=== PATIENT | female | born 1975 | race American Indian/Alaskan Native ===

== ENCOUNTER 2016-12-21 12:44 | Emergency (ER) | payer OTHER ==
[2016-12-21 13:03] VITALS: RESP 16; TEMP 97.8; O2SAT 100
[2016-12-21 15:08] LABS: BASO % 0.4 % (0.0-2.0); EOS # 0.7 K/uL (0.0-0.7); EOS % 6.8 % (0.0-4.0); HEMATOCRIT 35.8 % (34.0-47.0); LYMPH # 2.2 K/uL (1.0-4.3); MEAN CELL VOLUME 84.4 fl (81.0-99.0); MEAN CORPUSCULAR HEMOGLOBIN 27.7 pg (27.0-31.0); MEAN CORPUSCULAR HGB CONC 32.8 g/dL (33.0-37.0); MEAN PLATELET VOLUME 10.7 fl (7.2-11.7); MONO # 0.6 K/uL (0.0-0.8); MONO % 5.7 % (0.0-10.0); NEUT % 66.1 % (50.0-75.0); NRBC % 0.1 % (0.0-0.0); RED CELL DISTRIBUTION WIDTH 14.9 % (11.5-14.5); WHITE BLOOD COUNT 10.6 K/uL (4.8-10.8)
[2016-12-21 15:17] LABS: BLOOD UREA NITROGEN 7 mg/dl (7-17); CALCIUM 9.3 mg/dL (8.4-10.2); CARBON DIOXIDE 21 mmol/L (22-30); CHLORIDE 106 mmol/L (98-107); GFR AFRICAN-AMERICAN > 60; GLUCOSE,RANDOM 68 mg/dL (65-105); SODIUM 134 mmol/l (132-148); URIC ACID 4.1 mg/Dl (2.2-7.5)
[2016-12-21 15:18] LABS: ALKALINE PHOSPHATASE 64 U/L (38-126); ALT/SGPT 23 U/L (9-52); AST/SGOT 40 U/L (14-36); BILIRUBIN,TOTAL 0.7 mg/dl (0.2-1.3); TOTAL PROTEIN 7.1 G/DL (6.3-8.2)
[2016-12-21 15:29] LABS: URINE BILIRUBIN NEGATIVE (NEGATIVE); URINE BLOOD NEGATIVE (NEGATIVE); URINE COLOR STRAW (YELLOW); URINE GLUCOSE (UA) NEG (Normal); URINE KETONE TRACE mg/dL (NEGATIVE); URINE LEUKOCYTE ESTERASE NEG Leu/uL (Negative); URINE PROTEIN NEGATIVE (NEGATIVE); URINE UROBILINOGEN 0.2-1.0 mg/dL (0.2-1.0)
[2016-12-21 15:59] LABS: RBC URINE 1 /hpf (0-3); WBC URINE 1 /hpf (0-5)
--- NOTE | 2016-12-21 20:55 | OBHP ---
Datetime: 12/21/2016 16:19 IP Adm Impression: , intrauterine IP Chief Complaint Other: elevated BP in chronic hypertensive IP Admit Plan: Observation/Evaluation Admit Comment, IP Provider: CC: elevated BP in chronic hypertensive 41 y/o presenting at 28+ wk IUP ( [facility]ODA 03/14/17 by lmp per patient) sent from Dr Hull's o ffice for elevated BPs of 150s/90s. Patient has a hx of chronic HTN on labetalol 200 mg Q6. Patient i s compliant with meds. Denies HAMPTON, blurry vision, CP, SOB, dizziness, abd pain, limb swelling, no ctx, VB, LOF. States + F M. OBGYN Hx: no records to verify, states routine PNC, admits having 24 hr urine collection this preg robin. PMH: HTN PSH: denies Meds: Labetalol 200mg Q6 Allergies: NKDA O: cat 1 tracing, BPs reassuring in ED, 130s/70s A/P IUP 28+ weeks with chronic HTN - Preecclampsia workup: AST mildly elevated 40, Plts WNL 160, rest unremarkable - all labwork faxed over to Dr Hull's office - commence 24 hr urine collection tomorrow AM - follow up with Dr. Hull in 2 days, reassess BP - ER precautions discussed - all patient questions answered - d/w Dr Ray Alicea MD OB Hospitalist note: This pt was seen and examined by me. Agree with above note. ANNY spoke with Dr Hull and willsee patient next week Pelvic Type - PN: Not Done Extremities - PN: Normal Abdomen - PN: Normal Back - PN: Normal Breast - PN: Not Done Lungs - PN: Normal Heart - PN: Normal Thyroid - PN: Not Done Neurologic - PN: Normal HEENT - PN: Not Done General - PN: Normal FHR - Baseline A Provider: 150 Comments, ACOG Physical Exam: ROS: General: no weakness; no fatigue HEENT: no HAMPTON; no visual dist CV: no palpitations; no no CP GI: no N/V no diarhea : no F/U/D MS: No joint pain Uses Gestation - Est Wks by US: 28.0 Vital Signs Provider: Reviewed; Within Normal Limits NICHD Variability Prov Fetus A: Moderate 6-25bpm NICHD Accel Fetus A IP Provider: 15X15 FHR Category Provider Fetus A: Category I Genitourinary Exam: Normal DTRs - PN: Not Done
--- NOTE | 2016-12-21 20:58 | OBDCSUM ---
Datetime: 12/21/2016 16:16 Discharged to, Provider: Home Follow up at, Provider: Dr Hull Disch Instr Activity: Normal activity Disch Instr Diet: Regular Discharge Time: 12/21/2016 16:20 Follow up in weeks, Provider: next Tuesday Disch Referrals: None Disch Activity Restrictions: No sexual activity Discharge Comment, Provider: IUP 28+ weeks with chronic HTN - Preecclampsia workup: AST mildly elevated 40, Plts WNL 160, rest unremarkable - all labwork faxed over to Dr Hull's office - commence 24 hr urine collection tomorrow AM - follow up with Dr. Hull in 2 days, reassess BP - ER precautions discussed - all patient questions answered - d/w Dr Ray Alicea MD OB Hospitalist note: This pt was seen and examined by me. Agree with above note. MAHNDO Discharge Diagnosis Prov Other: Chronic HTN
[2016-12-21 20:59] VITALS: BP 133/74; PULSE 101
== END 2016-12-21 16:20 | disposition home or self-care (01) ==
LOC: H.EROB2 12:44
DX: I10 Essential (primary) hypertension (principal); Z3A.28 28 weeks gestation of pregnancy

== ENCOUNTER 2017-02-02 22:39 | Emergency (ER) | payer OTHER ==
[2017-02-02 22:54] VITALS: BMI 40.8
[2017-02-03 00:23] LABS: BASO % 0.3 % (0.0-2.0); EOS # 0.2 K/uL (0.0-0.7); EOS % 3.3 % (0.0-4.0); HEMATOCRIT 33.4 % (34.0-47.0); LYMPH # 2.1 K/uL (1.0-4.3); LYMPH % 29.3 % (20.0-40.0); MEAN CELL VOLUME 83.7 fl (81.0-99.0); MEAN CORPUSCULAR HEMOGLOBIN 27.2 pg (27.0-31.0); MEAN CORPUSCULAR HGB CONC 32.5 g/dL (33.0-37.0); MEAN PLATELET VOLUME 9.5 fl (7.2-11.7); MONO # 0.5 K/uL (0.0-0.8); MONO % 7.4 % (0.0-10.0); NEUT # 4.3 K/uL (1.8-7.0); NEUT % 59.7 % (50.0-75.0); NRBC % 0.1 % (0.0-0.0); RED CELL DISTRIBUTION WIDTH 14.6 % (11.5-14.5); WHITE BLOOD COUNT 7.1 K/uL (4.8-10.8)
[2017-02-03 00:24] LABS: RBC URINE 3 /hpf (0-3); URINE BILIRUBIN NEGATIVE (NEGATIVE); URINE BLOOD SMALL (NEGATIVE); URINE COLOR YELLOW (YELLOW); URINE GLUCOSE (UA) NEG (Normal); URINE KETONE TRACE mg/dL (NEGATIVE); URINE LEUKOCYTE ESTERASE NEG Leu/uL (Negative); URINE PROTEIN NEGATIVE (NEGATIVE); URINE UROBILINOGEN 0.2-1.0 mg/dL (0.2-1.0); WBC URINE 2 /hpf (0-5)
[2017-02-03 00:34] LABS: ALKALINE PHOSPHATASE 72 U/L (38-126); ALT/SGPT 24 U/L (9-52); AST/SGOT 17 U/L (14-36); BILIRUBIN,TOTAL 0.1 mg/dl (0.2-1.3); BLOOD UREA NITROGEN 11 mg/dl (7-17); CALCIUM 8.8 mg/dL (8.4-10.2); CARBON DIOXIDE 21 mmol/L (22-30); CHLORIDE 109 mmol/L (98-107); GFR AFRICAN-AMERICAN > 60; GLUCOSE,RANDOM 96 mg/dL (65-105); POTASSIUM 3.7 MMOL/L (3.6-5.0); SODIUM 138 mmol/l (132-148); TOTAL PROTEIN 6.8 G/DL (6.3-8.2); URIC ACID 4.8 mg/Dl (2.2-7.5)
[2017-02-03 05:34] VITALS: BP 133/83; PULSE 87; RESP 16; TEMP 98.7
--- NOTE | 2017-02-03 08:00 | OBHP ---
Datetime: 02/02/2017 23:37 IP Adm Impression: , intrauterine IP Chief Complaint Other: elevated BP IP Admit Plan: Observation/Evaluation Admit Comment, IP Provider: CC: "elevated bp of 167/97 at home" HPI: 41 YO @ 34.2wks IUP with PMH of CHTN presents to [facility] for elevated BP at home. This even ing pt had a headache and occasional dizziness. Pt took her BP and was found to be 167/97 at which po int she called Dr. Hull and was told to take her her labatalol and then come to [facility]. Pt took her la batalol 300mg around 8:30 and presented to the ED after. Denies LOF/VB/contractions and + moveme nt. Of note, pt was dx with UTI two days ago and is taking cephalexin 500mg for 10 days. Doc: Dr. Hull Ob hx: nvd x 2 full term GYnhx: no STIs, normal pap PMH: HTN Surg: Appendicitis Allergies: NKDA Meds: labatalol 300 TID, ASA 81, PNV and cephalexin 500mg Q6H (D2/10) SH: denies alcohol, smoking and etoh FH: HTN PE: VS Stable Gen: NAD cardio: S1S2, no M/G/R Resp: vesicular breathing b/l Abdomen: gravid, NT, BS+ Neuro: AAOx 3 Ext: no edema appreciated FM: 150, moderate variability, catagory I Assessment/Plan: 41 YO @ 34.2wks IUP with PMH of CHTN will be evaluated for preeclampsia. Last BP 129/75, pt s table. -CBC, CMP, uric acid, LFTs, protein, fibrinogen, PT/PTT, urinalysis. -monitor BPs. Pt was reassessed and reevaluated. Pt in NAD, resting comfortably. Headache has imporved. Blood wo rk appreciated. BPs stable at 120-130s/70-80s. Spoke to Dr. Hull. Pt given 24hr urine, d/c home and will follow up with Dr. Hull on Tuesday @ 1PM. Sasha Ospina, PGY I Patient's blood pressures reviewed 126/75-137/84 patient was asymptomatic upon discharge I agree w ith the resident's note and labs were within normal limits Pelvic Type - PN: Adequate Extremities - PN: Normal Abdomen - PN: Normal Back - PN: Not Done Breast - PN: Not Done Lungs - PN: Normal Heart - PN: Normal Thyroid - PN: Not Done Neurologic - PN: Normal HEENT - PN: Normal General - PN: Normal FHR - Baseline A Provider: 150 EGA AdmitDate IP: 34.2 Vital Signs Provider: Reviewed IP Chief Complaint: Other NICHD Variability Prov Fetus A: Moderate 6-25bpm NICHD Accel Fetus A IP Provider: 15X15 FHR Category Provider Fetus A: Category I Genitourinary Exam: Not Done DTRs - PN: Normal
== END 2017-02-03 01:15 | disposition home or self-care (01) ==
LOC: H.EROB2 22:39
DX: O13.3 Gestational [pregnancy-induced] hypertension without significant proteinuria, third trimester (principal); Z3A.34 34 weeks gestation of pregnancy

== ENCOUNTER 2017-02-16 12:43 | Inpatient (IN) | payer OTHER ==
[2017-02-16 13:27] VITALS: BMI 41.2
[2017-02-16 14:53] LABS: BASO % 0.5 % (0.0-2.0); EOS # 0.3 K/uL (0.0-0.7); EOS % 3.2 % (0.0-4.0); HEMATOCRIT 35.4 % (34.0-47.0); LYMPH # 2.1 K/uL (1.0-4.3); LYMPH % 20.6 % (20.0-40.0); MEAN CORPUSCULAR HGB CONC 33.7 g/dL (33.0-37.0); MEAN PLATELET VOLUME 10.6 fl (7.2-11.7); MONO # 0.6 K/uL (0.0-0.8); MONO % 5.7 % (0.0-10.0); NRBC % 0.1 % (0.0-0.0); RED CELL DISTRIBUTION WIDTH 14.6 % (11.5-14.5)
--- NOTE | 2017-02-16 15:00 | OBHP ---
Datetime: 02/16/2017 14:56 IP Adm Impression: , intrauterine IP Admit Plan: Admit to unit Admit Comment, IP Provider: G3P @ @ 36.2 wks GA with chornic htn seen by MFM office for routine ante testing with elevated BP 140/100. pt denies any headahce, bluryr visin, ruq/epigastri pain. pt had repated bp elevated adn MFM recommending IOL. Pt was then referred. Pt wsa at [facility] for BP elvatui n to rule out preeclamp and was given celestone on last visit fo rfetal lung matrurity. 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: Deie hx of abnorma pap, fibroid, ovairna cyst sti PMY: CHronic HTN PSH: Denies MEDS: Labetao, PNV NKDA SHX: negatiev x 3 FHX: non tontiuogyr A/P G3P@ @ 36.2 wks GA IOL for chronic HNT cannot rule out superimposed preelcampia -admi to L+D -npo, ivf -admssion/precelpamti labs -vs q 15 mn -BP paramater for IV Push >160/100 -cervidl -cont toco and efm -analagies prn Pelvic Type - PN: Adequate Extremities - PN: Normal Abdomen - PN: Normal Back - PN: Normal Breast - PN: Normal Lungs - PN: Normal Heart - PN: Normal Thyroid - PN: Normal Neurologic - PN: Normal HEENT - PN: Normal General - PN: Normal Weight - Estimated: 2900 FHR - Baseline A Provider: 150 Membranes, Provider: Intact Contraction Comments Provider: irregular Gestation - Est Wks by US: 36.2 IP Hx Assessment: The History has been Reviewed and is Current EGA AdmitDate IP: 36.2 Vital Signs Provider: Reviewed IP Chief Complaint: Other NICHD Variability Prov Fetus A: Moderate 6-25bpm FHR Category Provider Fetus A: Category I Dilatation, Provider: 1 Effacement, Provider: 30 Station, Provider: -3 Genitourinary Exam: Normal DTRs - PN: Normal
--- NOTE | 2017-02-16 15:02 | OBADHP ---
Datetime: 02/16/2017 14:56 Admit Comment, IP Provider: G3P @ @ 36.2 wks GA with chornic htn seen by MFM office for routine ante dae testing with elevated BP 140/100. pt denies any headahce, bluryr visin, ruq/epigastri pain. pt had repated bp elevated adn MFM recommending IOL. pt reprots having 24 hour urine with increasin pro tein. Pt was then referred. Pt wsa at [facility] for BP elvatuin to rule out preeclamp and was given gidlardo one on last visit fo rfetal lung matrurity. 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: Deie hx of abnorma pap, fibroid, ovairna cyst sti PMY: CHronic HTN PSH: Denies MEDS: Labetao, PNV NKDA SHX: negatiev x 3 FHX: non tontiuogyr A/P G3P@ @ 36.2 wks GA IOL for chronic HNT cannot rule out superimposed preelcampia -admi to L+D -npo, ivf -admssion/precelpamti labs -vs q 15 mn -BP paramater for IV Push >160/100 -cervidl -cont toco and efm -analagies prn -will cnsdier mgso4 if sever preexclampis Pelvic Type - PN: Adequate Extremities - PN: Normal Abdomen - PN: Normal Back - PN: Normal Breast - PN: Normal Lungs - PN: Normal Heart - PN: Normal Thyroid - PN: Normal Neurologic - PN: Normal HEENT - PN: Normal General - PN: Normal Weight - Estimated: 2900 FHR - Baseline A Provider: 150 Membranes, Provider: Intact Contraction Comments Provider: irregular Gestation - Est Wks by US: 36.2 IP Hx Assessment: The History has been Reviewed and is Current Vital Signs Provider: Reviewed IP Chief Complaint: Other NICHD Variability Prov Fetus A: Moderate 6-25bpm FHR Category Provider Fetus A: Category I Dilatation, Provider: 1 Effacement, Provider: 30 Station, Provider: -3 Genitourinary Exam: Normal DTRs - PN: Normal EGA AdmitDate IP: 36.2 IP Adm Impression: , intrauterine IP Admit Plan: Admit to unit Datetime: 02/02/2017 23:37 IP Chief Complaint Other: elevated BP NICHD Accel Fetus A IP Provider: 15X15 Datetime: 12/21/2016 16:19 Comments, ACOG Physical Exam: ROS: General: no weakness; no fatigue HEENT: no HAMPTON; no visual dist CV: no palpitations; no no CP GI: no N/V no diarhea : no F/U/D MS: No joint pain Uses
[2017-02-16 15:18] LABS: ALKALINE PHOSPHATASE 83 U/L (38-126); ALT/SGPT 28 U/L (9-52); AST/SGOT 24 U/L (14-36); BILIRUBIN,TOTAL 0.2 mg/dl (0.2-1.3); BLOOD UREA NITROGEN 7 mg/dl (7-17); CALCIUM 8.8 mg/dL (8.4-10.2); CARBON DIOXIDE 22 mmol/L (22-30); CHLORIDE 110 mmol/L (98-107); GFR AFRICAN-AMERICAN > 60; GLUCOSE,RANDOM 102 mg/dL (65-105); PARTIAL THROMBOPLASTIN TIME 29.9 Seconds (25.6-37.1); POTASSIUM 3.6 MMOL/L (3.6-5.0); SODIUM 140 mmol/l (132-148); TOTAL PROTEIN 6.8 G/DL (6.3-8.2); URIC ACID 4.8 mg/Dl (2.2-7.5)
[2017-02-16] MEDS ORDERED: Penicillin G Potassium 5 MU in Sodium Chloride 0.9% 50 ML IVPB ONE (16:41)
[2017-02-16] MEDS ORDERED: Penicillin G 5 Million Unit Vial IVPB ONE (16:53)
[2017-02-16] MEDS ORDERED: Labetalol 5 mg/ml Inj 20ML IVP STA (20:36)
[2017-02-16] MEDS: Lactated Ringer's 1,000 ML IV SCH (21:00)
[2017-02-16 23:06] LABS: RBC URINE 5 /hpf (0-3); URINE BILIRUBIN NEGATIVE (NEGATIVE); URINE BLOOD SMALL (NEGATIVE); URINE COLOR AMBER (YELLOW); URINE GLUCOSE (UA) NEG (Normal); URINE KETONE 80 mg/dL (NEGATIVE); URINE LEUKOCYTE ESTERASE TRACE Leu/uL (Negative); URINE PROTEIN 30 mg/dL (NEGATIVE); URINE UROBILINOGEN 0.2-1.0 mg/dL (0.2-1.0); WBC URINE 3 /hpf (0-5)
[2017-02-17] MEDS: Lactated Ringer's 1,000 ML IV SCH ×3 (05:39→13:20)
[2017-02-17] MEDS ORDERED: Oxytocin 30 UNITS in Sodium Chloride 0.9% 500 ML IV ONE (06:00)
--- NOTE | 2017-02-17 12:01 | OBPN ---
Datetime: 02/17/2017 11:56 IP Progress Impression: Normal progression of labor IP Informed Consent Obtain: Vaginal Delivery IP Procedures: Artificial ROM IP Progress Plan: Continue present management Membranes, Provider: Ruptured Amniotic Fluid Color, Provider: Clear FHR - Baseline A Provider: 145 Gestation - Est Wks by US: 36.3 Presentation-Admit: Vertex IP Progress Note Comment: pt seen and examiend for progresin of labor. denie headache, blurry vision , ruq/epigastric pain Pt with elevated bp overnight and headache Labteol 20mg IV x 1 and tyeonol with improvment of headahes VS reviewed VE: /-2 AROM clearn A/P G3P@ @ 36.3 wks GA chronic htn -cont pitocin as per pmanagment -anestheis prn -cont current manamgnet Vital Signs Provider: Reviewed NICHD Variability Prov Fetus A: Moderate 6-25bpm Dilatation, Provider: 4 Effacement, Provider: 50 Station, Provider: -2 NICHD Decel Fetus A IP Provider: None Datetime: 02/16/2017 15:30 NICHD Accel Fetus A IP Provider: 15X15 (Annotations: Data stored by CPN on behalf of user) FHR Category Provider Fetus A: Category I Datetime: 02/16/2017 14:56 Contraction Comments Provider: irregular Weight - Estimated: 2900
[2017-02-17] MEDS ORDERED: Fentanyl/Bupivacaine HCl 250 ML EPI ONE (12:34)
--- NOTE | 2017-02-17 14:24 | OBPN ---
Datetime: 02/17/2017 14:21 IP Progress Impression: Normal progression of labor IP Progress Plan: Continue present management Membranes, Provider: Ruptured FHR - Baseline A Provider: 135 Gestation - Est Wks by US: 36.3 Presentation-Admit: Vertex IP Progress Note Comment: pt seen and examined s/p epdiural VSS VE: /-2 AROM clear A/P G3P@ @ 36.3 wks GA IOL For chornic htn -iupc -cont pitocin as per protocol -cont current manamgent Vital Signs Provider: Reviewed FHR Category Provider Fetus A: Category I NICHD Variability Prov Fetus A: Moderate 6-25bpm Dilatation, Provider: 4 Effacement, Provider: 60 Station, Provider: -2 NICHD Decel Fetus A IP Provider: None
[2017-02-17] MEDS ORDERED: Lidocaine 1% Inj (20ml) ONE (15:50)
[2017-02-17] MEDS ORDERED: Benzocaine/Menthol SPRAY TOP PRN (16:45)
[2017-02-17] MEDS ORDERED: Oxycodone/Acetaminophen 5/325 mg Tab PO PRN ×2 (16:45)
--- NOTE | 2017-02-17 16:47 | OBDS ---
MATERNAL INFORMATION Provider Comments: pt was fully dilated and pushing, atrumatic, spoentnau deliveyr of head, loose nu chal cord x 1 reduced. anterior followed by posterior shoulder followwed by deliver of body. both ora l and nasal passages of the baby bulb sucionated. umbilcal cord clamped and cut. baby handed to johnathan weinstein [facility] rn assistance. cord blood adn cord gases collected and sent x 2. spontanous delive yr of intact placenta with membranes. fundus firm, lower uterien segment boggy. IM hemabatex 1. lo wer uteirne segment firm. intact perineum. good hemostais. live male apgars 9,9 weigh to f5l7 ounces. ebl 200ml no complicatons peidatric presnt for dleiveyr LABOR SUMMARY EDC: 03/14/2017 00:00 No. Babies in Womb: 1 LABOR INFORMATION Cervical Ripening Agents: Cervidil (Annotations: Cervidil 10 mg intravaginally inserted by Dr Jessica lloyd ([facility] ) after explaining to the pt.) MEMBRANES Membranes Rupture Method: Artificial Rupture of Membranes: 02/17/2017 09:22 Amniotic Fluid Color: Clear Amniotic Fluid Amount: Moderate Amniotic Fluid Odor: Normal VAGINAL DELIVERY Count Comment: intact perienum PRESENTATION/POSITION BABY A Presentation: Cephalic IDENTIFICATION/MEDS BABY A ID Band Number: [id number] ID Band Location: Left Leg; Left Arm
[2017-02-18 06:14] LABS: BASO % 0.2 % (0.0-2.0); EOS # 0.3 K/uL (0.0-0.7); EOS % 2.5 % (0.0-4.0); HEMATOCRIT 33.8 % (34.0-47.0); LYMPH # 1.9 K/uL (1.0-4.3); LYMPH % 17.5 % (20.0-40.0); MEAN CELL VOLUME 83.2 fl (81.0-99.0); MEAN CORPUSCULAR HEMOGLOBIN 28.2 pg (27.0-31.0); MEAN CORPUSCULAR HGB CONC 33.9 g/dL (33.0-37.0); MEAN PLATELET VOLUME 9.8 fl (7.2-11.7); MONO # 0.8 K/uL (0.0-0.8); MONO % 7.1 % (0.0-10.0); NEUT # 7.9 K/uL (1.8-7.0); NEUT % 72.7 % (50.0-75.0); RED CELL DISTRIBUTION WIDTH 14.6 % (11.5-14.5); WHITE BLOOD COUNT 10.8 K/uL (4.8-10.8)
--- NOTE | 2017-02-18 09:47 | OBPPN ---
Datetime: 02/18/2017 09:44 PP Pain Prov: Within normal limits PP Nausea Prov: Denies PP Flatus Prov: Yes PP BM Prov: No PP Breasts Prov: Normal PP Heart Prov: Normal PP Lungs Prov: Normal PP Abdomen/Uterus Prov: Normal PP Lochia Prov: Normal PP Vulva/Perineum Prov: Normal PP CVA Tenderness Prov: Normal PP Extremities Prov: Normal PP C/S Incision Prov: Not Applicable PP Progress Prov: Normal PP Impression Prov: Normal progression PP Plan Prov: Continue present management PP Progress Note Prov: Pt seen adn examiend and reprot pain controlled with medicaion. pt is mabutin g, boiding, passing flatus, breast feeding, deie any heavy bleeding,d enies any lightheadness, dizzyn ess, CP, SOB, fver VSS PE: GEN: NAD, AAO X RESP: CTAB?l CVS: RRR, +S1?S2 BREAST: Non tnender, non engorged b/l ABD: soft, nt, nd, no gaurid, no reboud tendnere, no rigity FUNDUS: Firm, at level of umbilcis VE: minimal lochai, non fouls [place] EXT: no calf tendneres, trace edema non pitting, pulses 2+ b/l A/p s/p PPD #1 with chronic hypertension doing well -cont current managmetn -pain magnnet -VS q 4 hours, precations/ paramaters given: notify MD >160/90 -cont labetaol 300mg TID -encourage ambuation, breast feeding -low salt/vegan diet Vital Signs Provider PP: Reviewed Vital Signs Provider Details PP: BP 130-140/80-90s
[2017-02-18] MEDS: Multivitamin With Minerals Tab PO SCH (13:44)
[2017-02-19] MEDS: Multivitamin With Minerals Tab PO SCH (09:06)
[2017-02-19 09:42] VITALS: PULSE 109
[2017-02-19 20:05] VITALS: BP 144/92; RESP 20; TEMP 98.4; O2SAT 97
== END 2017-02-19 15:30 | disposition home or self-care (01) | DRG 775 ==
LOC: H.EROB2 12:43 → H.L&D 13:40 → H.OB/GYN 02-17 21:47
PROVIDERS: ADMIT Obstetrics & Gynecology; ATTEND Obstetrics & Gynecology
PROC: 4A1HXCZ Monitoring of Products of Conception, Cardiac Rate, External Approach (ICD-10-PCS; 2017-02-16)
PROC: 10E0XZZ Delivery of Products of Conception, External Approach (ICD-10-PCS; principal; 2017-02-17)
PROC: 10907ZC Drainage of Amniotic Fluid, Therapeutic from Products of Conception, Via Natural or Artificial Opening (ICD-10-PCS; 2017-02-17)
DX: O13.4 Gestational [pregnancy-induced] hypertension without significant proteinuria, complicating childbirth (principal); O69.81X0 Labor and delivery complicated by cord around neck, without compression, not applicable or unspecified; O09.523 Supervision of elderly multigravida, third trimester; Z3A.36 36 weeks gestation of pregnancy; Z37.0 Single live birth